=== PATIENT | female | born 1985 | race Caucasian/White ===

== ENCOUNTER 2016-10-12 06:35 | Outpatient (CLI) | payer MEDICAID ==
[~2016-10-12] VITALS: Ht 167.6 cm; Wt 99.5 kg
--- NOTE | ~2016-10-12 | HEMODYNAMI ---
PATIENT:SANCHO FELICIANO MEDICAL RECORD: [id number] : 85 LOCATION:[facility] ADMISSION DATE: 10/12/16 Generatedon:10/12/20168:36 Patient name: SANCHO FELICIANO Patient #: [id number] SSN: DO B: 1985 Date of study: 10/12/2016 Page: Of Hemodynamic Procedure Report Patient Data Patient Demographics Procedure consent was obtained First Name: SANCHO Gender: Female Last Name: JODIE : 1985 Patient #: [id number] Age: 30 year(s) Race: Unknown Additional ID: [id number] Contact details Address: [facility] State: [place] City: [place] Zip code: [address] Past Medical History Allergies Allergen Reaction Date Comments Reported Other allergy 10/12/2016 Imitrex, Sulfa, Bactrim Admission Admission Data Admission Date: 10/12/2016 Admission Time: 6:35 Admit Source: Other Insurance Payor: Private health insurance Height (in.): 66 BSA: 2.08 (m2) Height (cm.): 167.64 BMI: 35.35 (kg/m2) Weight (lbs.): 219 Weight (kg.): 99.34 Lab Results Lab Result Date: 10/12/2016 Lab Result Time: 0:00 Biochemistry Name Units Result Min Max Creatinine mg/dl 0.6 --(*---)-- 0.6 1.3 CBC Name Units Result Min Max Hemoglobin g/dl 14.7 --(-*--)-- 13.5 17.5 Procedure Procedure Types Cath Procedure Diagnostic Procedure C [facility] w/Coronaries Miscellaneous Procedures Moderate Sedation up to 30 minutes Procedure Description Procedure Date Procedure Date: 10/12/2016 Procedure Start Time: 8:19 Procedure End Time: 8:36 Procedure Staff Name Function Asaf Banda MD Performing Physician Amanda Palmer RT Scrub Mike Goddard RT Scrub Don Mora RN Nurse Daniela Counts RT Monitor Procedure Data Cath Procedure Fluoroscopy Diagnostic fluoroscopy Total fluoroscopy Time: 2.3 time: 2.3 min min Diagnostic fluoroscopy Total fluoroscopy dose: 407 dose: 407 mGy mGy Contrast Material Contrast Material Type Amount (ml) Isovue 300 33 Entry Location Entry Primary Successful Side Size Upsize Upsize Entry Closure Succes sful Closure Location (Fr) 1 (Fr) 2 (Fr) Remarks Device Remarks Femoral Right 5 Fr Exoseal artery Estimated blood loss: 5 ml Diagnostic catheters Device Type Used For End Catheter Placement Cordis 5Fr JL 4.0 Left Coronary Catheter (MP) Angiography Cordis 5Fr 3DRC Catheter Right Coronary (MP) Angiography Cordis 5Fr Pigtail LV Angiography Catheter (MP) Procedure Complications No complications Procedure Medications Medication Administration Route Dosage Oxygen NC 2 l/min Lidocaine 2% added to field 20 Heparin Flush Bag added to field 2 bags (1000units/500ml NS) 0.9% NaCl 100 ml/hr Versed I.V. 1 mg Fentanyl I.V. 50 mcg Hemodynamics Rest BSA: 2.08 (m2) HGB: 14.7 (g/dl) O2 Consumption: Estimated: 220.84 (ml/min) O2 Co nsumption indexed: Estimated:106.17 (ml/min/m) Heart Rate: 69 (bpm) Pressure Samples Time Site Value (mmHg) Purpose Heart Use Rate(bpm) 8:23 AO 121/78(99) Snapshot 69 8:29 LV 119/-6,18 EDP 68 8:30 AO 121/75(94) Pullback 68 8:30 LV 112/17,17 Pullback 68 Gradients Valve Time Site 1 Site 2 Mean SEP/DFP Peak To Heart Use (mmHg) (sec/min) Peak Rate (mmHg) (bpm) Aortic 8:30 LV AO 0 9 0 68 112/17,17 121/75(94) Calculations Valve P-P Mean Valve Index Valve Source Name Gradient Area Flow (cm2) Aortic 0 0 0 0 Snapshots Pre Cath Intra NCS Post Cath Vital Signs Time Heart Resp SPO2 etCO2 ZH0lwed NIBP (mmHg) Rhythm Pain Sedation Rate (ipm) (%) (mmHg) (mmHg) Status Level (bpm) 8:10:26 61 17 100 0 0 Measuring NSR 0 (11) 10(A) , No pain 8:12:31 71 15 100 0 0 136/79(107) NSR 0 (11) 10(A) , No pain 8:16:47 64 16 99 0 0 126/75(95) NSR 0 (11) 10(A) , No pain 8:20:59 70 16 99 0 0 117/76(93) NSR 0 (11) 10(A) , No pain 8:25:09 66 14 99 0 0 121/72(88) NSR 0 (11) 10(A) , No pain 8:29:19 67 15 98 0 0 119/76(91) NSR 0 (11) 10(A) , No pain 8:33:31 72 17 98 0 0 112/66(89) NSR 0 (11) 10(A) , No pain Medications Time Medication Route Dose Verified Delivered Reason Notes Effec tiveness by by 8:16:50 Oxygen NC 2 Asaf Buffie used for l/min Solo Mora RN procedure MD 8:17:50 Lidocaine 2% added 20ml Asaf Asaf for local to vial Solo Banda MD anesthetic field 8:17:56 Heparin Flush added 2 Asaf Asaf used for Bag to bags Solo Banda MD procedure (1000units/500ml field HUNTER NS) 8:22:40 0.9% NaCl 100 Asaf Buffie Per ml/hr Solo Mora RN physician 8:22:46 Versed I.V. 1 mg Asaf Buffie for Solo Mora RN sedation 8:22:53 Fentanyl I.V. 50 Asaf Buffie for mcg Solo Mora RN sedation Procedure Log Time Note 7:59:04 Don Mora RN sent for patient. Start room use. 7:59:05 Time tracking: Regular hours 7:59:11 Plan of Care:Hemodynamics will remain stable., Cardiac rhythm will remain stable., Comfort level will be maintained., Respiratory function will remain adequate., Patient/ family verbilizes understanding of procedure., Procedure tolerated without complication., Recovers from procedure without complications.. 8:01:48 Lab Result : Hemoglobin 14.7 g/dl 8:01:48 Lab Result : Creatinine 0.6 mg/dl 8:02:01 Patient Height : 66 cm 8:02:03 Patient Weight : 219 kg 8:06:21 Patient received from Pre/Post Procedure Room to [facility] 1 Alert and oriented. Tansferred to table in Supine position. 8:06:25 Warm blankets applied, and noris hugger turned on for patient comfort. 8:06:25 Correct patient and procedure confirmed by team. 8:06:29 Signed procedure consent form obtained from patient. 8:06:29 ECG and BP/O2 sat monitors applied to patient. 8:08:38 Vital chart was started 8:08:41 Baseline sample Acquired. 8:08:49 Full Disclosure recording started 8:09:26 H&P Date Dictated: 10/03/2016 Within 30 days and on chart., H&P Addendum completed by physician on day of procedure. (MUST COMPLETE FOR ALL OUTPATIENTS). 8:09:29 Pre-procedure instructions explained to patient. 8:09:29 Pre-op teaching completed and patient verbalized understanding. 8:09:30 Family in waiting room. 8:09:32 Patient NPO since Midnight. 8:09:55 Patient allergic to Other allergyImitrex, Sulfa, Bactrim 8:09:59 Is the patient allergic to Iodine/contrast media? No. 8:10:00 Was the patient premedicated? No 8:10:03 Is patient on blood thinner?No 8:10:18 Patient diabetic? No. 8:10:28 HCG/Urine : completed and on chart, negative 8:10:32 Previous problem with sedation/anesthesia? No ? 8:10:33 Snore? Yes 8:10:34 Sleep apnea? No 8:10:35 Deviated septum? No 8:10:36 Opens mouth fully? Yes 8:10:37 Sticks out tongue? Yes 8:10:39 Airway obstruction? No ? 8:10:43 Dentures? No ? 8:10:47 Pre procedure: right dorsailis pedis pulse 2+ Normal; easily identifiable; not easily obliterated 8:10:50 Pre procedure: left dorsailis pedis pulse 2+ Normal; easily identifiable; not easily obliterated 8:10:52 Patient pain scale 0/10 ?. 8:11:06 IV patent on arrival in left hand with 0.9% NaCl at KVO. 8:11:09 Lab results completed and on chart. 8:11:13 Right groin area was prepped with chlora-prep and draped in sterile fashion 8:11:14 Alarms reviewed by R. N. 8:11:15 Sharps counted by scrub and verified by RJaelynNJaelyn 8:11:18 Physician arrived 8::19 --------ALL STOP TIME OUT------ 8:11:20 Final Timeout: patient, procedure, and site verified with staff and physician. All members of the team are in agreement. 8:11:21 Right groin site verified by team. 8:11:25 Physical assessment completed. ASA score P 2 - A patient with mild systemic disease as per Aasf Banda MD. 8:11:29 Sedation plan: IV Moderate Sedation Versed, Fentanyl 8:11:34 Use device set Femoral Dx 8:11:35 Acist Syringe opened to sterile field. 8:11:35 Bag Decanter opened to sterile field. 8:11:36 Medline Cath Pack opened to sterile field. 8:11:36 Terumo 5Fr Randle Sheath opened to sterile field. 8:11:37 St Zain 260cm J .035 wire opened to sterile field. 8:11:37 Acist Hand Control opened to sterile field. 8:11:38 Acist Manifold opened to sterile field. 8:11:38 Diagnostic Infinity 5Fr Multipack catheter opened to sterile field. 8:11:39 Tegaderm 4 x 4 opened to sterile field. 8:14:01 Baseline sample Acquired. 8:14:42 Admit Source: Other 8:14:50 Insurance Payor : Private health insurance 8:16:50 Oxygen 2 l/min NC was administered by Don Mora RN; used for procedure; 8:17:50 Lidocaine 2% 20ml vial added to field was administered by Asaf Banda MD; for local anesthetic; 8:17:56 Heparin Flush Bag (1000units/500ml NS) 2 bags added to field was administered by Asaf Banda MD; used for procedure; 8:18:01 Procedure started. 8:18:11 Terumo 5Fr Randle Sheath opened to sterile field. 8:19:06 Local anesthetic to right femoral artery with Lidocaine 2% by Asaf Banda MD.INITIAL ACCESS ONLY 8:20:29 Cook 4Fr Micropuncture ([id number]) opened to sterile field. 8:21:01 Zero performed for pressure channel P1 8:21:30 A 5 Fr sheath was inserted into the Right Femoral artery 8:22:40 0.9% NaCl 100 ml/hr was administered by Don Mora RN; Per physician; 8:22:43 A Cordis 5Fr JL 4.0 Catheter (MP) was advanced over the wire and used for Left Coronary Angiography. 8:22:46 Versed 1 mg I.V. was administered by Don Mora RN; for sedation; 8:22:53 Fentanyl 50 mcg I.V. was administered by Don Mora RN; for sedation; 8:24:28 Catheter removed. 8:24:47 A Cordis 5Fr 3DRC Catheter (MP) was advanced over the wire and used for Right Coronary Angiography. 8:27:23 Catheter removed. 8:28:05 A Cordis 5Fr Pigtail Catheter (MP) was advanced over the wire and used for LV Angiography. 8:29:34 LV gram done using HARMON 8:29:35 LV hemodynamics recorded. 8:29:40 Injector settings: Ml/sec: 12, Volume: 8, 8:30:43 Catheter removed. 8:31:00 Sheath removed intact; hemostasis achieved with Exoseal to the Right Femoral artery. 8:31:08 Procedure ended.(Physican Out) 8:31:14 Cordis 5Fr Exoseal opened to sterile field. 8:35:17 Fluoroscopy time 02.30 minutes. 8:35:21 Fluoroscopy dose: 407 mGy 8:35:21 Flurop Dose total: 407 8:35:24 Contrast amount:Isovue 300 33ml. 8:35:25 Sharps counted by scrub and verified by R.N. 8:35:27 Insertion/operative site no bleeding no hematoma. 8:35:29 Post-op/insertion site Right Femoral artery dressed using a 4 x 4 and Tegaderm. 8:35:33 Post right femoral artery:stable, clean and dry 8:35:35 Post Procedure Pulses reassessed and unchanged 8:35:39 Post-procedure physical assessment completed. ASA score P 2 - A patient with mild systemic disease as per Asaf Banda MD. 8:35:42 Post procedure rhythm: unchanged. 8:35:45 Estimated blood loss: 5 ml 8:35:46 Post procedure instruction explained to patient.Patient verbalizes understanding. 8:35:47 Patient needs reinforcement of post procedure teaching. 8:35:55 Procedure type changed to Cath procedure, Diagnostic procedure, LHC, LHC w/Coronaries, Miscellaneous Procedures, Moderate Sedation up to 30 minutes 8:36:00 Procedure Complication : No complications 8:36:02 See physician's report for complete and final results. 8:36:18 Procedure and supply charges have been captured, reviewed, submitted and are correct. 8:36:18 Vital chart was stopped 8:36:21 Report given to Pre/Post Procedure Room. 8:36:24 Patient transfered to Pre/Post Procedure Room with Stretcher. 8:36:31 Procedure ended. 8:36:31 Full Disclosure recording stopped 8:36:36 End room use (Document Last) Device Usage Item Name Manufacture Quantity Catalog Hospital Part Current Minimal Lot# / Number Charge Number Stock Stock Serial# Code Acist Syringe Acist 1 29424 078521 [id number] [id number] 20 [employer] Bag Decanter Microtek 1 2002S 236300 90385 161224 5 [employer] Medline Cath Cardinal 1 [id number] 126661 27584 736739 5 Pack Health Terumo 5Fr Terumo 2 [id number] 407299 534632 190730 [address] Zain 260[address] St Zain 1 863070 761169 295442 721734 30 J .035 wire Acist Hand Acist 1 49635 336997 655032 093982 5 Control [employer] Inc Acist Acist 1 34920 967951 401884 814979 5 Manifold [employer] Inc Diagnostic Cardinal 1 ON2570 178791 25584 982015 30 Infinity 5Fr Health Multipack catheter Tegaderm 4 x 3M 1 1626W 234327 799280 454436 5 4 Cook 4Fr Cook Medical 1 [id number] 321008 038522 804703 5 Micropuncture ([id number]) Cordis 5Fr JL Cardinal 1 [id number] 5 4.0 Catheter Health (MP) Cordis 5Fr Cardinal 1 [id number] 5 3DRC Catheter Health (MP) Cordis 5Fr Cardinal 1 [id number] 5 Pigtail Health Catheter (MP) Cordis 5Fr Cardinal 1 EX500 069573 654738 337992 10 [employer] Signature Audit [place] Stage Time Signature Unsigned Intra-Procedure 10/12/2016 Daniela 8:36:46 AM Counts RT(R) Signatures Monitor : Daniela Signature : Counts RT Date : Time : [address] [place] [address]
[2016-10-12] MEDS ORDERED: LOPRESSOR25 MG PO (06:47)
[2016-10-12 06:55] VITALS: BP 125/81; Ht 167.6 cm; Wt 99.5 kg
--- NOTE | 2016-10-12 07:03 | NUR ---
[address] BUCKLEY TO NOTIFY HIM OF HIS PT'S ARRIVAL AND CLARIFY PLAVIX ORDER. DR BUCKLEY STATES DOES NOT WANT PT TO RECEIVE THE 300MG OF PLAVIX THIS AM PRIOR TO CATH.
[2016-10-12 07:07] LABS: BASOPHILS 0.3 % (0-2); EOSINOPHILS 2.4 % (0-7); HEMATOCRIT 41.8 % (36.0-48.0); HEMOGLOBIN 14.7 g/dL (12-16); IMMATURE GRANULOCYTES 0.3 % (0-5); LYMPHOCYTES 26.2 % (15-50); MCH 31.4 pg (26.0-34.0); MCHC 35.2 g/dL (31.0-37.0); MCV 89.3 fL (80.0-100.0); MEAN PLATELET VOLUME 10.6 fL (7.4-10.4); MONOCYTES 7.9 % (2-11); NEUTROPHILS 62.9 % (40-80); PLATELET COUNT 288 10x3/uL (130-400); RBC 4.68 10x6/uL (4.00-5.40); RDW 12.8 % (11.5-14.5); WBC 7.6 10x3/uL (4.8-10.8)
[2016-10-12 07:15] LABS: CALC OSMOLALITY 273 mosm/kg (275-300); CALCIUM 8.3 mg/dL (8.5-10.1); CARBON DIOXIDE 22.6 mmol/L (21.0-32.0); CHLORIDE - SERUM 106 mmol/L (98-107); CREATININE - SERUM 0.6 mg/dL (0.6-1.3); GLUCOSE 105 mg/dL (74-106); HCG SERUM NEGATIVE (NEGATIVE); POTASSIUM - SERUM 3.8 mmol/L (3.5-5.1); SODIUM 138 mmol/L (136-145); UREA NITROGEN 8 mg/dL (7-18); eGFR NON AFRICAN AMERICAN > 90 mL/min (90-120)
--- NOTE | 2016-10-12 08:51 | NUR ---
0840 RECEIVED PT FROM PERINATAL TECHNICIAN. PT IS ALERT, DENIES ANY C/O PAIN OR NAUSEA. DRESSING TO RIGHT GROIN IS CDI, AREA IS SOFT AND NONTENDER. PEDAL PULSES PALPABLE. CAP REFILL IS BRISK. NO FAMILY AT BEDSIDE, CALL LIGHT IS IN REACH.
--- NOTE | 2016-10-12 08:55 | NUR ---
0855 PO FLUIDS SERVED, PT DENIES ANY PAIN. DRESSING TO RIGHT GROIN IS STABLE WTIH NO BLEEDING OR HEMATOMA NOTED. PEDAL PULSES PALPABLE. CALL LIGHT IN REACH.
--- NOTE | 2016-10-12 09:25 | NUR ---
0910 PT DENIES ANY C/O. RIGHT GROIN DRESSING IS CDI, AREA SOFT AND NONTENDER. PEDAL PULSES PALPABLE. PT'S MOTHER AT BEDSIDE, CALL LIGHT IN REACH. RR EVEN AND UNLABORED. VSS.
--- NOTE | 2016-10-12 09:30 | NUR ---
0930 ALERT AND ORIENTED WITH CHEST PAIN DENIED. VSS 5 FR EXOSEAL R/GROIN CDI NO BLEEDING NO HEMATOMA NOTED. FAMILY AT SIDE
--- NOTE | 2016-10-12 09:53 | NUR ---
SANDWICH AND SODA TO BEDSIDE. HR 69 BP101/63 NO DISTRESS NOTED. 5 FR EXOSEAL R/GROIN CDI
--- NOTE | 2016-10-12 10:21 | NUR ---
RESTING QUIETLY WITH NEEDS DENIED 5 FR EXOSEAL R/GROIN CDI NO BLEEDING NO HEMATOMA NOTED
--- NOTE | 2016-10-12 10:57 | NUR ---
REPOSITIONED TO SITTING WITH HOB UP 30 DEGREES. 5 FR EXOSEAL R/GROIN CDI NO BLEEDING NO HEMATOMA NOTED.
--- NOTE | 2016-10-12 11:15 | NUR ---
PIV REMOVED WITH PRESSURE HELD AND DRESSING APPLIED. PATIENT UP TO GET DRESSED FOR DISCHARGE WITH CHEST PAIN DENIED. 5 FR EXOSEAL R/GROIN CDI
--- NOTE | 2016-10-12 11:28 | NUR ---
VERBAL AND WRITTEN DISCHARGE GONE OVER WITH PATIENT AND FAMILY. BOTH VERBALZIED UNDERSTANDING. NO NEW MEDICATION WITH FOLLOW UP MADE. 5 FR EXOSEAL R/GROIN CDI AND CHEST PAIN DENIED
--- NOTE | 2016-10-12 11:35 | NUR ---
PATIENT TRANSPORTED VIA WC TO PARKING FOR DISCHARGE HOME
== END 2016-10-12 11:37 | disposition home or self-care (01) ==
LOC: D.CATH 06:35
PROVIDERS: Internal Medicine Cardiovascular Disease
DX: I20.9 Angina pectoris, unspecified (principal); R94.30 Abnormal result of cardiovascular function study, unspecified; R00.2 Palpitations; F17.200 Nicotine dependence, unspecified, uncomplicated; Z01.812 Encounter for preprocedural laboratory examination

== ENCOUNTER → 2017-05-27 18:15 | Outpatient (CLI) | payer MEDICAID ==
[2016-10-12 06:55] VITALS: BMI 35.4
[~2017-05-27 18:15] MED LIST: LOPRESSOR25 MG PO
== END | disposition home or self-care (01) ==
LOC: D.MAMMO 13:30
DX: N64.4 Mastodynia (principal)

== ENCOUNTER → 2020-04-07 08:39 | Outpatient (CLI) | payer OTHER ==
[2016-10-12 06:55] VITALS: BMI 35.4
== END | disposition home or self-care (01) ==
LOC: D.MRI 08:39
PROVIDERS: ATTEND General Practice
DX: M54.5 Low back pain (principal)